=== PATIENT | male | born 1945 | race Hispanic/Latino ===

== ENCOUNTER → 2024-03-28 | Outpatient (CLI) | payer SELFPAY ==
[2024-03-28 12:52] LABS: ALBUMIN 3.4 g/dL (3.5-5.0); BILIRUBIN,TOTAL 0.7 mg/dL (0.2-1.0); POTASSIUM 4.1 mmol/L (3.5-5.1); TOTAL PROTEIN, SERUM 7.2 g/dL (6.0-8.3)
== END | disposition home or self-care (01) ==
LOC: LAB 09:04
PROVIDERS: ATTEND Internal Medicine Cardiovascular Disease
DX: E11.59 Type 2 diabetes mellitus with other circulatory complications (principal); I20.9 Angina pectoris, unspecified; R06.09 Other forms of dyspnea; I50.22 Chronic systolic (congestive) heart failure
CPT/HCPCS: 36415; 80053; 80061

== ENCOUNTER → 2024-05-02 | Outpatient (CLI) | payer SELFPAY ==
[2024-05-02 12:33] LABS: CREATININE 0.9 mg/dL (0.5-1.3)
== END | disposition home or self-care (01) ==
LOC: LAB 08:20
PROVIDERS: ATTEND Internal Medicine Cardiovascular Disease
DX: I11.0 Hypertensive heart disease with heart failure (principal); I50.22 Chronic systolic (congestive) heart failure; E78.00 Pure hypercholesterolemia, unspecified
CPT/HCPCS: 36415; 80048